=== PATIENT | male | born 2000 ===

== ENCOUNTER 2023-11-04 21:07 | Emergency (ER) | payer OTHER, SELFPAY ==
[2023-11-04 21:14] VITALS: BP 168/92
--- NOTE | 2023-11-05 | ED.GENMED ---
History of Present Illness
General
Chief Complaint: Nose Bleed
Source: patient
Exam Limitations: none
Time Seen by Provider: 11/04/23 23:46
Travel History
Have you had any contact with someone who has COVID-19?: No
Do you have any symptoms of coronavirus? Fever > 100 degrees, chills, cough, shortness of breath, sore throat, loss of taste or smell, muscle aches, or headache?: No
History of Present Illness
History of Present Illness:
See MDM
Past History
Past History
ED Past Medical History: None
ED Past Surgical History: None
Social History
Tobacco: Non-smoker
Alcohol: None
Phy Exam
Physical Exam
Physical Exam:
See MDM
Course
Orders/Labs/Results
Orders:
Orders
11/04/23 23:59
Fluorescein Sodium [Ful-Dipika] 4 mg .ROUTE .STK-MED ONE
11/05/23 00:06
Ciprofloxacin HCl [Ciloxan 0.3% Ophthalmic Solution] See Dose Instructions OPHTH NOW STA
Vital Signs
Initial and Last Documented VS:
Initial Vital Signs
Temp Pulse Resp BP Pulse Ox
98.7 F 92 19 168/92 99
11/04/23 21:14 11/04/23 21:14 11/04/23 21:14 11/04/23 21:14 11/04/23 21:14
Last Documented Vital Signs
Temp Pulse Resp BP Pulse Ox
98.7 F 76 19 142/89 99
11/04/23 21:14 11/05/23 00:34 11/04/23 21:14 11/05/23 00:34 11/04/23 21:14
MDM/Problems Addressed
Differential Diagnosis Includes:
HPI and MDM Narrative:
22-year-old male presenting with 2 complaints. Patient is concerned about intermittent nosebleeding. Patient states he has been blowing his nose and is wondering if that was the cause. The bleeding has since resolved. Patient also complaining of
bilateral eye redness. Patient noted the redness in 1 eye and it has now spread to the other eye. He denies blurry vision. He does wear contacts. The eye has been tearing and he states that intermittently crusts
In regards to the nosebleed, patient given a nasal clamp to use if it rebleeds. We discussed moisturizing with antibiotic ointment
In regards to the eye redness, there are 3 corneal abrasions. There are 2 in the right eye along the 6:00 and 5 o'clock position. The left eye has an abrasion in the 3 o'clock position. I discussed with patient the possibility of these being very
early corneal ulcers. Patient started on ciprofloxacin eyedrops and discussed the importance of ophthalmology follow-up
Physical exam
General: Well appearing and non-toxic
HEENT: protecting airway. Bilateral conjunctivitis. Bilateral corneal abrasions noted. Pupils equal reactive. Dried blood noted to left nare
Neck: appears supple
CV: No evidence of cyanosis
Resp: No accessory muscle use
Abd: Non-distended
Extremities: No deformities
Neuro: alert
Psych: Normal affect
Skin: Intact
Problems Addressed including Acute and Chronic Conditions affecting care:
1. Epistaxis
Acuity: acute
Prognosis: stable
Details: Discussed compression and return precautions
2. Conjunctivitis
Acuity: acute
Prognosis: stable
Details: Patient started on ciprofloxacin eyedrops with concern for corneal abrasion with the possibility of underlying corneal ulcer. Patient understands ophthalmology follow-up
Differential Diagnosis (but not limited to): Cranial abrasion, UV keratitis, conjunctivitis
Testing considered: COVID and flu
Drug therapy (if applicable): OTC meds, please see d/c instruction regarding Rx drugs
Amount and/or Complexity of Data Reviewed
Clinical info obtained from: Patient
External data reviewed: N/A
Labs I independently reviewed (but not limited to): N/A
Radiology: N/A
Pulse Ox: not hypoxic
EKG independently reviewed: N/A
Refrigerator Room Clerk: N/A
Critical Care: N/A
Risk of Complication:
Social Determinants of health: Good social support
Discussed with other providers: N/A
Escalation of Care includes Admit/Obs: After being observed in the Emergency Department, pt stable for discharge.
Occasional wrong word or 'sound a like' substitutions may have occurred due to the inherent limitations of voice recognition software. Read the chart carefully and recognize, using context, where substitutions have occurred.
*Critical Care Note
Total Time (30-74mins, 75-104mins- exclusive of procedures): Not Applicable
ED Attending Note
-
Portions of this chart may have been created with voice recognition software.� Occasional wrong word or��sound alike� substitutions may have occurred due to the inherent limitations of voice recognition software.
Discharge Plan
Departure
Patient Disposition: Home (Routine Discharge)
Date of Disposition: 11/05/23
Time of Disposition: 00:01
Patient with high blood pressure during this ER visit?: Yes
Discharge Problem:
Conjunctivitis, Epistaxis
Instructions: Nosebleeds (DC), BLOOD PRESSURE
Referrals:
UNKNOWN - PT DOES,NOT KNOW [Family Provider] -
Activity Restrictions/Additional Instructions:
Please use 2 drops in each eye 4 times a day for the next week. As we discussed, it is a possibility that your small abrasions could turn into ulcers. Please call your eye doctor to have this reevaluated. Please return for worsening symptoms. If
your nose starts to rebleed, please use the nasal clamp provided for 10 minutes.
Interventions
Interventions:
*Risk Screen - Suicide Last Done: 11/04/23 21:14
*General Assessment Last Done: 11/04/23 21:14
*Neglect/Abuse Screening Last Done: 11/04/23 21:14
*ED COVID-19 Vaccine History Last Done: 11/04/23 21:14
*Nursing Disposition Last Done: 11/05/23 00:34
ED-EENT Assessment Last Done: 11/04/23 22:17
Discharge Date and Time
Discharge Date/Time: 11/05/23 00:35
[2023-11-05 00:14] VITALS: BP 142/89
[2023-11-05] MEDS: CILOXAN 0.3% OPHTHALMIC SOLUTION 4 DROP OPHTH (00:27)
[2023-11-05 00:34] VITALS: BP 142/89
== END 2023-11-05 00:35 | disposition home or self-care (01) ==
LOC: EMR 21:07
PROVIDERS: EMERGENCY PHYSICIAN Student in an Organized Health Care Education/Training Program
DX: H10.9 Unspecified conjunctivitis (principal); R04.0 Epistaxis; S05.02XA Injury of conjunctiva and corneal abrasion without foreign body, left eye, initial encounter; S05.01XA Injury of conjunctiva and corneal abrasion without foreign body, right eye, initial encounter; X58.XXXA Exposure to other specified factors, initial encounter
CPT/HCPCS: 99282